=== PATIENT | male | born 1985 | race Caucasian/White ===

== ENCOUNTER → 2017-04-07 | Outpatient (CLI) | payer OTHER | LOC: M WUC 09:48 | PROVIDERS: ATTEND Physician Assistant | DX: J02.9 Acute pharyngitis, unspecified (principal) ==

== ENCOUNTER → 2017-10-03 | Outpatient (REF) | payer OTHER | LOC: M LAB REF 19:21 | DX: J02.9 Acute pharyngitis, unspecified (principal) | CPT/HCPCS: 87081 ==

== ENCOUNTER → 2020-10-16 | Outpatient (REF) | payer BC | LOC: M LAB REF 18:39 | PROVIDERS: ATTEND Physician Assistant Medical | DX: Z11.59 Encounter for screening for other viral diseases (principal) ==

== ENCOUNTER 2022-10-13 13:23 | Emergency (ER) | payer BC ==
[~2022-10-13] VITALS: Ht 182.9 cm; Wt 94.7 kg
[2022-10-13] MEDS ORDERED: OMEP40CA4 PO ×2 (17:07→17:25)
[2022-10-13 17:23] VITALS: BP 107/70
== END 2022-10-13 17:32 | disposition home or self-care (01) ==
LOC: M ED 13:23
DX: K21.9 Gastro-esophageal reflux disease without esophagitis (principal); R05.3 Chronic cough; Z79.83 Long term (current) use of bisphosphonates